=== PATIENT | male | born 1975 | race American Indian/Alaskan Native ===

== ENCOUNTER 2017-05-21 20:16 | Emergency (ER) | payer MEDICARE ==
[2017-05-21 20:35] VITALS: BP 129/76
[2017-05-21 20:58] LABS: Basophils % (Auto) 0.6 % (0.0-1.8); Eosinophils # (Auto) 0.2 K/mm3 (0.0-0.4); Eosinophils % (Auto) 2.5 % (0.0-4.3); Hematocrit 40.6 % (35.5-45.6); Hemoglobin 13.6 gm/dl (11.8-15.2); Lymphocytes # (Auto) 2.3 K/mm3 (1.2-5.4); Lymphocytes % (Auto) 32.1 % (13.4-35.0); Mean Corpuscular HGB Conc 33 % (32-34); Mean Corpuscular Hemoglobin 30 pg (28-32); Mean Corpuscular Volume 91 fl (84-94); Monocytes # (Auto) 0.6 K/mm3 (0.0-0.8); Monocytes % (Auto) 7.8 % (0.0-7.3); Platelet Count 234 K/mm3 (140-440); Red Blood Count 4.48 M/mm3 (3.65-5.03); Red Cell Distribution Width 18.8 % (13.2-15.2)
[2017-05-21 21:10] LABS: BUN/Creatinine Ratio 14; Blood Urea Nitrogen 14 mg/dL (9-20); Calcium 9.1 mg/dL (8.4-10.2); Hemolysis Index 7
[2017-05-22 08:16] LABS: Bilirubin,Urine NEG (Negative); Blood,Urine NEG (Negative); Color,Urine Yellow (Yellow); Mucus,Urine FEW /HPF; Nitrite,Urine NEG (Negative); Protein,Urine <15 mg/dL mg/dL (Negative)
[2017-05-22 09:31] LABS: Amphetamine Screen,Urine PRESUMPTIVE NEGATIVE; Benzodiazepines Screen,Urine PRESUMPTIVE NEGATIVE; Cannabinoid Screen,Urine PRESUMPTIVE NEGATIVE; Cocaine Screen,Urine PRESUMPTIVE NEGATIVE; Methadone Screen,Urine PRESUMPTIVE NEGATIVE; Opiate Screen,Urine PRESUMPTIVE NEGATIVE
== END 2017-05-23 01:05 | disposition left against medical advice (07) ==
LOC: ED 20:16
DX: Z53.21 Procedure and treatment not carried out due to patient leaving prior to being seen by health care provider (principal)
CPT/HCPCS: 36415; 80048; 80307; 81001; 85025; G0480; 80320